=== PATIENT | male | born 1960 | race Caucasian/White ===

== ENCOUNTER 2022-12-03 13:33 | Outpatient (CLI) | payer OTHER, SELFPAY ==
[2022-12-03 14:05] LABS: Total Protein Urine 179 mg/dL
[2022-12-03 14:08] LABS: Albumin* 4.3 g/dL (3.3-5.0); Chloride* 106 mmol/L (96-114); Creatinine Urine 317.3 mg/dL; Sodium* 140 mmol/L (135-149)
[2022-12-03 14:09] LABS: Potassium* 4.7 mmol/L (3.6-5.1)
[2022-12-03 14:10] LABS: Cholesterol* 133 mg/dL (90-199); Estimated Glomerular Filt Rate 85 ml/min
[2022-12-03 14:11] LABS: Alanine Aminotransferase* 29 U/L (4-50); Alkaline Phosphatase* 116 U/L (40-150); Aspartate Amino Transferase* 27 U/L (12-35); Bilirubin Total* 0.6 mg/dL (0.1-1.5); Blood Urea Nitrogen* 12 mg/dL (7-30); Calcium* 8.9 mg/dL (8.4-10.6); Carbon Dioxide* 29 mmol/L (20-32); Glucose* 144 mg/dL (60-115); Total Protein* 7.1 g/dL (6.0-8.3); Triglycerides* 361 mg/dL (40-149)
[2022-12-03 14:12] LABS: HDL Cholesterol* 28 mg/dL (>=40); LDL Cholesterol Calculated 33 mg/dL (<100)
[2022-12-03 14:41] LABS: PSA Screen* 0.86 ng/mL (0.10-4.00)
[2022-12-03 14:55] LABS: Microalbumin Creatinine Ratio 570 mg/g (0-30); Microalbumin Urine 182 mg/dL
[2022-12-03 15:00] LABS: Vitamin B12* 546 pg/mL (243-894)
== END 2022-12-03 13:34 | disposition home or self-care (01) ==
PROVIDERS: PCP Family Medicine; Visit Provider Family Medicine
DX: E11.69 Type 2 diabetes mellitus with other specified complication (principal); E78.5 Hyperlipidemia, unspecified; E11.9 Type 2 diabetes mellitus without complications; Z12.5 Encounter for screening for malignant neoplasm of prostate
CPT/HCPCS: 80053; 80061; 82043; 82570; 82607; 84153; 84156

== ENCOUNTER 2023-09-23 07:29 | Outpatient (CLI) | payer OTHER, SELFPAY | END 2023-09-23 07:30 | disposition home or self-care (01) | LOC: NFLDREF 09-24 08:04 | PROVIDERS: PCP Family Medicine; Referring Provider Family Medicine; Visit Provider Physician Assistant Medical | DX: E11.9 Type 2 diabetes mellitus without complications (principal); E78.5 Hyperlipidemia, unspecified; K21.9 Gastro-esophageal reflux disease without esophagitis | CPT/HCPCS: 80053; 80061; 82043; 82570 ==

== ENCOUNTER 2024-01-14 07:31 | Outpatient (CLI) | payer OTHER, SELFPAY | END 2024-01-14 07:32 | disposition home or self-care (01) | LOC: NFLDREF 02-02 15:48 | PROVIDERS: PCP Family Medicine; Referring Provider Family Medicine; Visit Provider Physician Assistant Medical | DX: E11.65 Type 2 diabetes mellitus with hyperglycemia (principal); E78.5 Hyperlipidemia, unspecified; R79.89 Other specified abnormal findings of blood chemistry; Z79.84 Long term (current) use of oral hypoglycemic drugs | CPT/HCPCS: 80061; 84450; 84460 ==

== ENCOUNTER 2024-11-22 07:36 | Outpatient (CLI) | payer BC, SELFPAY | END 2024-11-22 07:37 | disposition home or self-care (01) | LOC: NFLDREF 11-24 06:28 | PROVIDERS: PCP Physician Assistant Medical; Referring Provider Physician Assistant Medical; Visit Provider Physician Assistant Medical | DX: R79.89 Other specified abnormal findings of blood chemistry (principal); E11.9 Type 2 diabetes mellitus without complications; E78.2 Mixed hyperlipidemia; Z12.5 Encounter for screening for malignant neoplasm of prostate; Z13.29 Encounter for screening for other suspected endocrine disorder | CPT/HCPCS: 80053; 80061; 82043; 82570; 84443; G0103 ==